=== PATIENT | female | born 1995 | race African-American/Black ===

== ENCOUNTER 2016-10-25 02:41 | Emergency (ER) | payer SELFPAY ==
[~2016-10-25] VITALS: Ht 167.6 cm; Wt 75.0 kg
[2016-10-25 03:49] LABS: HEMOGLOBIN 13.3 g/dL (11.7-16.4)
[2016-10-25 04:01] LABS: BLOOD UREA NITROGEN 12 mg/dL (7-18)
[2016-10-25 04:05] LABS: ASPARTATE AMINO TRANSFERASE 19 U/L (15-37)
[2016-10-25 06:52] VITALS: BP 111/43
== END 2016-10-25 07:08 | disposition home or self-care (01) ==
LOC: ED 03:48
DX: F10.10 Alcohol abuse, uncomplicated (principal)
CPT/HCPCS: 36415; 80053; 80307; 85025; 99284

== ENCOUNTER 2016-12-19 12:53 | Emergency (ER) | payer SELFPAY ==
[~2016-12-19] VITALS: Ht 180.3 cm; Wt 95.4 kg
[2016-12-19] MEDS ORDERED: KETOROLAC 30 MG/1 ML ONE (13:27)
[2016-12-19] MEDS ORDERED: DIAZEPAM 5 MG TABLET ONE (13:27)
[2016-12-19] MEDS ORDERED: KETOROLAC 30 MG/1 ML IM ONE (13:30)
[2016-12-19] MEDS ORDERED: DIAZEPAM 5 MG TABLET PO ONE (13:30)
[2016-12-19 14:11] VITALS: BP 99/61
== END 2016-12-19 14:14 | disposition home or self-care (01) ==
LOC: ED 14:08
DX: S16.1XXA Strain of muscle, fascia and tendon at neck level, initial encounter (principal); X58.XXXA Exposure to other specified factors, initial encounter; Y93.89 Activity, other specified; Y92.89 Other specified places as the place of occurrence of the external cause; Y99.8 Other external cause status; M50.33 Other cervical disc degeneration, cervicothoracic region
CPT/HCPCS: 72050; 96372; 99284; J1885

== ENCOUNTER 2017-01-02 20:12 | Emergency (ER) | payer SELFPAY ==
[~2017-01-02] VITALS: Ht 180.3 cm; Wt 97.7 kg
[2017-01-02] MEDS ORDERED: SODIUM CHLORIDE FLUSH 10ML SYR IVF ONE (20:30)
[2017-01-02] MEDS ORDERED: ONDANSETRON 2MG/ML, 2ML IVPush ONE (20:30)
[2017-01-02] MEDS ORDERED: SODIUM CHLORIDE 0.9% 1,000ML IV ONE (20:30)
[2017-01-02] MEDS ORDERED: MORPHINE SULFATE 4 MG/ML, 1ML IVPush PRN (20:30)
[2017-01-02 20:56] LABS: ASPARTATE AMINO TRANSFERASE 22 U/L (15-37); BLOOD UREA NITROGEN 8 mg/dL (7-18)
[2017-01-02] MEDS ORDERED: PLEASE ENTER HEIGHT AND WEIGHT MC SCH (21:00)
[2017-01-02] MEDS ORDERED: MORPHINE SULFATE 4 MG/ML, 1ML ONE (21:17)
[2017-01-02] MEDS ORDERED: ONDANSETRON 2MG/ML, 2ML ONE (21:18)
[2017-01-02 21:47] LABS: PATH.CAST-FLAG NOT PRESENT; SPERM-FLAG NOT PRESENT; SRC-FLAG NOT PRESENT; XTAL-FLAG NOT PRESENT; YLC-FLAG NOT PRESENT
[2017-01-03 00:02] VITALS: BP 111/67
== END 2017-01-03 01:12 | disposition home or self-care (01) ==
LOC: ED 21:49
DX: R10.9 Unspecified abdominal pain (principal); J45.909 Unspecified asthma, uncomplicated
CPT/HCPCS: 36415; 76770; 76856; 80053; 81001; 83690; 84703; 85025; 87086; 96361; 96374; 96375; 99285; J2405; J7030

== ENCOUNTER 2017-03-25 15:51 | Emergency (ER) | payer SELFPAY ==
[~2017-03-25] VITALS: Ht 175.3 cm; Wt 102.0 kg
[2017-03-25 15:57] VITALS: BP 117/62
[2017-03-25] MEDS ORDERED: IBUPROFEN 100 MG/5 ML UDC PO ONE (17:00)
[2017-03-25] MEDS ORDERED: IBUPROFEN 100 MG/5 ML UDC ONE (17:01)
== END 2017-03-25 17:13 | disposition home or self-care (01) ==
LOC: ED 16:53
DX: R05 Cough (principal); J45.909 Unspecified asthma, uncomplicated
CPT/HCPCS: 71020; 93005; 99284

== ENCOUNTER 2018-06-23 10:43 | Emergency (ER) | payer MEDICAID ==
[~2018-06-23] VITALS: Ht 177.8 cm; Wt 89.0 kg
[2018-06-23] MEDS ORDERED: DIAZEPAM 5 MG TABLET PO ONE (11:00)
[2018-06-23] MEDS ORDERED: KETOROLAC 30 MG/1 ML IM ONE (11:00)
[2018-06-23] MEDS ORDERED: KETOROLAC 30 MG/1 ML ONE (11:04)
[2018-06-23] MEDS ORDERED: DIAZEPAM 5 MG TABLET ONE (11:04)
[2018-06-23 12:12] VITALS: BP 111/46
== END 2018-06-23 12:14 | disposition home or self-care (01) ==
LOC: ED 11:55
DX: M54.5 Low back pain (principal); G89.29 Other chronic pain; J45.909 Unspecified asthma, uncomplicated; M41.9 Scoliosis, unspecified
CPT/HCPCS: 72110; 96372; 99283; J1885

== ENCOUNTER 2018-08-23 10:55 | Emergency (ER) | payer MEDICAID ==
[~2018-08-23] VITALS: Ht 175.3 cm; Wt 81.2 kg
[2018-08-23 10:59] VITALS: BP 112/63
--- NOTE | 2018-08-23 12:50 | NUR ---
DINING SERVICES DIRECTOR: PT TO ROOM FROM PING ORR.
[2018-08-23] MEDS ORDERED: IBUPROFEN 600 MG TABLET ONE (13:08)
[2018-08-23] MEDS ORDERED: IBUPROFEN 600 MG TABLET PO ONE (13:30)
== END 2018-08-23 13:23 | disposition home or self-care (01) ==
LOC: ED 13:20
DX: M94.0 Chondrocostal junction syndrome [Tietze] (principal); J45.909 Unspecified asthma, uncomplicated; F17.200 Nicotine dependence, unspecified, uncomplicated
CPT/HCPCS: 71046; 93005; 99283